=== PATIENT | male | born 1995 | race Caucasian/White ===

== ENCOUNTER 2019-01-26 16:22 | Emergency (ER) | payer SELFPAY ==
[2019-01-26] MEDS ORDERED: FAMOTIDINE 20 MG/2 ML INJ IV ONE (16:40)
--- NOTE | 2019-01-26 19:45 | Emergency Department Report ---
HPI - General Chief Complaint: Allergic Reaction Time Seen by Provider: 01/26/19 16:28 - HPI HPI: 23-year-old male with no sniffed and past medical history presents to the hospital complaining of allergic reaction. Patient ate peanuts cashews and pecans prior to arrival. He denies previous allergy to nuts. Shortly afterwards she began to have a generalized rash and swelling. Rash is pruritic. Patient took Benadryl 50 prior to arrival without improvement. EMS provided Solu-Medrol 125 mg. Patient states he has a tingling in the back of his stool but denies throat tightness, tongue swelling, wheezing, shortness of breath, abdominal pain, nausea, or vomiting. ED Past Medical Hx - Past Medical History Previous Medical History?: No - Surgical History Past Surgical History?: No - Social History Smoking Status: Never Smoker Substance Use Type: Alcohol - Medications Home Medications: Home Medications Medication Instructions Recorded Confirmed Last Taken Type EPINEPHrine [Epipen] 0.3 mg IJ ONCE PRN #1 auto.injct 01/26/19 Unknown Rx Famotidine [Pepcid] 20 mg PO BID #10 tablet 01/26/19 Unknown Rx diphenhydrAMINE [Benadryl CAP] 50 mg PO Q8HR PRN #20 capsule 01/26/19 Unknown Rx predniSONE [Deltasone] 20 mg PO BID #10 tab 01/26/19 Unknown Rx ED Review of Systems ROS: Stated complaint: ALLERGIC REACTION Other details as noted in HPI Comment: All other systems reviewed and negative Physical Exam - Physical Exam Vital Signs: Vital Signs 01/26/19 01/26/19 01/26/19 16:37 17:22 19:18 Temperature 98.0 F Pulse Rate 98 H 102 H 100 H Respiratory 16 20 20 Rate Blood Pressure 131/84 Blood Pressure 133/73 116/76 [Left] O2 Sat by Pulse 99 97 Oximetry Physical Exam: General: No acute distress Head: Atraumatic with facial swelling Eyes: normal appearance, conjunctiva injection ENT: Moist mucous membranes, no posterior pharyngeal swelling Neck: Normal appearance, no midline tenderness, no stridor Chest: Clear to auscultation bilaterally CV: Regular rate and rhythm Abdomen: Soft, normal bowel sounds, nontender, nondistended, no rebound or guarding Back: Normal inspection Extremity: Normal inspection infection, full range of motion Neuro: Alert O x 3, no facial asymmetry, speech clear, no gross motor sensory deficit Psych: Appropriate behavior Skin: Pruritic erythematous blanching rash ED Course Vital Signs 01/26/19 01/26/19 01/26/19 16:37 17:22 19:18 Temperature 98.0 F Pulse Rate 98 H 102 H 100 H Respiratory 16 20 20 Rate Blood Pressure 131/84 Blood Pressure 133/73 116/76 [Left] O2 Sat by Pulse 99 97 Oximetry ED Medical Decision Making - Medical Decision Making Patient presents with allergic reaction without airway issues. Observed here f or several hours after receiving Benadryl, site a Medrol, and Pepcid. Symptoms improving. Plan to discharge her medications for allergic reaction and advised to not eat nuts. Referral to [facility] will be provided. - Differential Diagnosis allergic reaction Critical Care Time: No Critical care attestation.: If time is entered above; I have spent that time in minutes in the direct care of this critically ill patient, excluding procedure time. ED Disposition Clinical Impression: Allergic reaction, Nut allergy Disposition: - TO HOME OR SELFCARE Is pt being admited?: No Does the pt Need Aspirin: No Condition: Stable Instructions: Food Allergy (ED) Additional Instructions: Take the medication as prescribed. Use EpiPen as needed for severe allergic reaction including throat tightness, tongue swelling, shortness of breath, wheezing, or feeling lightheaded like you are going to pass out. Follow-up with your doctor or doctor/clinic provided. Return if symptoms worsen as indicated by your discharge instructions. Prescriptions: diphenhydrAMINE [Benadryl CAP] 50 mg PO Q8HR PRN #20 capsule PRN Reason: Allergic Reaction predniSONE [Deltasone] 20 mg PO BID #10 tab EPINEPHrine [Epipen] 0.3 mg IJ ONCE PRN #1 auto.injct PRN Reason: Anaphylaxis Famotidine [Pepcid] 20 mg PO BID #10 tablet Referrals: REMY THOMAS MD [Primary Care Provider] - 3-5 Days DORIS STERLING MD [Staff Physician] - 3-5 Days [facility] [Provider Group] - 3-5 Days Time of Disposition: 20:05
[2019-01-26 20:16] VITALS: BP 120/77
== END 2019-01-26 20:35 | disposition home or self-care (01) ==
LOC: ED 16:22
DX: T78.1XXA Other adverse food reactions, not elsewhere classified, initial encounter (principal); X58.XXXA Exposure to other specified factors, initial encounter
CPT/HCPCS: 96374